=== PATIENT | male | born 1950 ===

== ENCOUNTER 2019-04-16 15:20 | Outpatient (REF) | payer SELFPAY ==
[2019-04-16 17:33] LABS: Estmated Average Glucose 111; Hemoglobin A1C 5.5 % (4.0-6.0)
[2019-04-16 18:02] LABS: Chol HDL Ratio 6.13 mg/dL (1.0-5.00); Cholesterol 196 mg/dL (0-200); Glucose 84 mg/dL (65-115); HDL Cholesterol 32 mg/dL (60-100); LDL Cholesterol Calculated 143 mg/dL (50-129); LDL HDL Ratio 4.47 RATIO (0.00-3.22); Triglycerides 103 mg/dL (0-150)
== END 2019-04-16 15:21 | disposition home or self-care (01) ==
LOC: LAB 15:20
PROVIDERS: Visit Provider Dermatology
DX: Z13.9 Encounter for screening, unspecified (principal)
CPT/HCPCS: 80061; 82947; 83036